=== PATIENT | female | born 1975 | race American Indian/Alaskan Native ===

== ENCOUNTER 2019-01-20 08:05 | Emergency (ER) | payer OTHER ==
[2019-01-20 08:40] VITALS: BP 161/108
[2019-01-20] MEDS ORDERED: TORADOL IM ONE (09:39)
[2019-01-20] MEDS ORDERED: DELTASONE PO ONE (09:39)
[2019-01-20] MEDS ORDERED: FLEXERIL PO ONE (09:39)
--- NOTE | 2019-01-20 09:50 | Emergency Department Report ---
ED Neck Pain/Injury HPI - General Chief Complaint: Neck Pain/Injury Stated Complaint: NECK PAIN Time Seen by Provider: 01/20/19 09:31 Mode of arrival: Ambulatory Limitations: No Limitations - History of Present Illness Initial Comments: This is a 43-year-old female presents complaining lateral right and left neck pain that started Friday morning. Patient's tissue woke up and cervix which is in the pain. Patient states over time its gotten a bit stiff and hurts when she moves her muscles of her neck from side to side. She denies any trauma or recent injuries or falls. She denies fever/nausea vomiting/recent travel or any other problems. MD Complaint: neck pain -: Sudden Place: home Radiation: right lateral, left lateral Severity: moderate Severity scale (0 -10): 7 Quality: aching Consistency: constant Improves With: immobilization Worsens With: movement of neck Context: unknown Associated Symptoms: none. denies: headache, fever, numbness, weakness, vertigo, difficulty walking, nausea, vomiting Treatments Prior to Arrival: none - Related Data Previous Rx's Medication Instructions Recorded Last Taken Type Acetaminophen/Codeine [Tylenol 1 tab PO Q6H PRN #12 tab 12/10/18 Unknown Rx /Codeine # 3 tab] Clindamycin [Clindamycin CAP] 300 mg PO Q8H 10 Days #30 cap 12/10/18 Unknown Rx Amlodipine Besylate [Norvasc] 5 mg PO DAILY #40 tablet 01/20/19 Unknown Rx Cyclobenzaprine [Flexeril 10 MG 10 mg PO QHS #20 tablet 01/20/19 Unknown Rx TAB] Ibuprofen [Motrin 800 MG tab] 800 mg PO Q8HR PRN #30 tablet 01/20/19 Unknown Rx Allergies Allergy/AdvReac Type Severity Reaction Status Date / Time No Known Allergies Allergy Unverified 12/10/18 18:28 ED Review of Systems ROS: Stated complaint: NECK PAIN Other details as noted in HPI Comment: All other systems reviewed and negative ED Past Medical Hx - Past Medical History Previous Medical History?: Yes Hx Hypertension: Yes - Surgical History Past Surgical History?: Yes Additional Surgical History: Right foot surgery, C SECTION - Social History Smoking Status: Current Every Day Smoker Substance Use Type: Alcohol - Medications Home Medications: Home Medications Medication Instructions Recorded Confirmed Last Taken Type Acetaminophen/Codeine [Tylenol 1 tab PO Q6H PRN #12 tab 12/10/18 Unknown Rx /Codeine # 3 tab] Clindamycin [Clindamycin CAP] 300 mg PO Q8H 10 Days #30 cap 12/10/18 Unknown Rx Amlodipine Besylate [Norvasc] 5 mg PO DAILY #40 tablet 01/20/19 Unknown Rx Cyclobenzaprine [Flexeril 10 MG 10 mg PO QHS #20 tablet 01/20/19 Unknown Rx TAB] Ibuprofen [Motrin 800 MG tab] 800 mg PO Q8HR PRN #30 tablet 01/20/19 Unknown Rx ED Physical Exam - General Limitations: No Limitations General appearance: alert, in no apparent distress - Head Head exam: Present: atraumatic, normocephalic - Eye Eye exam: Present: normal appearance - ENT ENT exam: Present: mucous membranes moist - Neck Neck exam: Present: normal inspection, tenderness (mildly tender to the right and left trapezius muscles of the neck), full ROM (limited with pain), other (no nucal rigidity or spinal tenderness). Absent: meningismus, lymphadenopathy, thyromegaly - Respiratory Respiratory exam: Present: normal lung sounds bilaterally. Absent: respiratory distress, wheezes - Cardiovascular Cardiovascular Exam: Present: regular rate, normal rhythm. Absent: systolic murmur, diastolic murmur, rubs, gallop - GI/Abdominal GI/Abdominal exam: Present: soft, normal bowel sounds - Extremities Exam Extremities exam: Present: normal inspection - Back Exam Back exam: Present: normal inspection - Neurological Exam Neurological exam: Present: alert, oriented X3 - Psychiatric Psychiatric exam: Present: normal affect, normal mood - Skin Skin exam: Present: warm, dry, intact, normal color. Absent: rash ED Course Vital Signs 01/20/19 08:37 Temperature 97.8 F Pulse Rate 85 Respiratory 18 Rate Blood Pressure 161/108 O2 Sat by Pulse 100 Oximetry ED Medical Decision Making - Medical Decision Making 43-year-old female presents to ED with cervical muscle strain ED course: Patient received Toradol,pred and Flexeril in ED. Vital signs are normal patient is in no acute distress Discussed with patient follow-up with primary care physician. Discussed the patient and take medications as prescribed. Patient has no neurological deficit. Patient is alert and oriented 3 and understands all instructions given. Discussed drowsiness effect of Flexeril makes her drowsy and not to operate machinery while taking flexeril Critical care attestation.: If time is entered above; I have spent that time in minutes in the direct care of this critically ill patient, excluding procedure time. ED Disposition Clinical Impression: Cervical muscle strain Disposition: - TO HOME OR SELFCARE Is pt being admited?: No Does the pt Need Aspirin: No Condition: Stable Instructions: Muscle Strain (ED), Muscle Spasm (ED) Additional Instructions: Make sure to follow up with the primary care physician as discussed. Take all your medications as you've been prescribed. If you have any worsening symptoms or develop new symptoms please return to ED immediately. Prescriptions: Cyclobenzaprine [Flexeril 10 MG TAB] 10 mg PO QHS #20 tablet Ibuprofen [Motrin 800 MG tab] 800 mg PO Q8HR PRN #30 tablet PRN Reason: mild pain Amlodipine Besylate [Norvasc] 5 mg PO DAILY #40 tablet Referrals: CARA MOYA MD [Primary Care Provider] - 3-5 Days Forms: Accompanied Note, Work/School Release Form(ED) Time of Disposition: 09:52
== END 2019-01-20 10:12 | disposition home or self-care (01) ==
LOC: ED 08:05
DX: S16.1XXA Strain of muscle, fascia and tendon at neck level, initial encounter (principal); I10 Essential (primary) hypertension; F17.200 Nicotine dependence, unspecified, uncomplicated; X58.XXXA Exposure to other specified factors, initial encounter; Y93.89 Activity, other specified; Y92.89 Other specified places as the place of occurrence of the external cause; Y99.8 Other external cause status
CPT/HCPCS: 96372; 99282; J1885; J7512

== ENCOUNTER 2019-01-23 14:41 | Emergency (ER) | payer OTHER ==
--- NOTE | 2019-01-23 15:44 | Emergency Department Report ---
Chief Complaint: Neck Pain/Injury Stated Complaint: NECK PAIN Time Seen by Provider: 01/23/19 15:41 - HPI History of Present Illness: PCP NONE RX NORVASC PMH HTN PSH CSEC R FOOT LMP 2 CO NECK PAIN HERE 3 DAYS AGO MEDS NOT WORKING DID NOT FOLLOW UP AMBULATORY CIG ETOH MSE COMPLETED MSE screening note: Focused history and physical exam performed. Due to findings the following was ordered: ED Disposition for MSE Condition: Stable
--- NOTE | 2019-01-23 16:29 | XRay Report ---
PROCEDURE: XR SPINE CERVICAL 2-3V TECHNIQUE: Cervical spine, 3 views HISTORY: PAIN IN NECK COMPARISONS: None FINDINGS: The vertebral body heights and alignment are maintained. Disc spaces are preserved. Prevertebral soft tissues are within normal limits in thickness. Odontoid process is intact. IMPRESSION: No acute abnormality is identified. This document is electronically signed by Maryse Blue MD., January 23 2019 04:26:33 PM ET
[2019-01-23] MEDS ORDERED: TORADOL IM ONE (17:22)
--- NOTE | 2019-01-23 17:23 | Emergency Department Report ---
ED Neck Pain/Injury HPI - General Chief Complaint: Neck Pain/Injury Stated Complaint: NECK PAIN Time Seen by Provider: 01/23/19 15:41 Mode of arrival: Ambulatory Limitations: No Limitations - History of Present Illness Initial Comments: Pt is a 43 yo female who presents to the ED with c/o left and right sided neck pain that began a week ago. She states she woke up with the pain. The patient denies any injury, fall, or trauma. Pt was evaluated in the ED a couple of days ago and given flexeril and antiinflammatory. Pt states that the flexeril is not helping. Pt denies any LEONARD, fever, numbness, tingling, or weakness. The patient has a hx of HTN and states she took her medication this morning. MD Complaint: neck pain Onset/Timin -: week(s) Radiation: right lateral, left lateral Severity: moderate Severity scale (0 -10): 5 Quality: aching Associated Symptoms: none Treatments Prior to Arrival: Ibuprofen, other (flexeril) - Related Data Previous Rx's Medication Instructions Recorded Last Taken Type Amlodipine Besylate [Norvasc] 5 mg PO DAILY #40 tablet 01/20/19 Unknown Rx Cyclobenzaprine [Flexeril 10 MG 10 mg PO QHS #20 tablet 01/20/19 Unknown Rx TAB] Ibuprofen [Motrin 800 MG tab] 800 mg PO Q8HR PRN #30 tablet 01/20/19 Unknown Rx Allergies Allergy/AdvReac Type Severity Reaction Status Date / Time No Known Allergies Allergy Unverified 12/10/18 18:28 ED Review of Systems ROS: Stated complaint: NECK PAIN Other details as noted in HPI Comment: All other systems reviewed and negative ED Past Medical Hx - Past Medical History Previous Medical History?: Yes Hx Hypertension: Yes - Surgical History Past Surgical History?: Yes Additional Surgical History: Right foot surgery, C SECTION - Social History Smoking Status: Current Some Day Smoker Substance Use Type: Alcohol - Medications Home Medications: Home Medications Medication Instructions Recorded Confirmed Last Taken Type Amlodipine Besylate [Norvasc] 5 mg PO DAILY #40 tablet 01/20/19 Unknown Rx Cyclobenzaprine [Flexeril 10 MG 10 mg PO QHS #20 tablet 01/20/19 Unknown Rx TAB] Ibuprofen [Motrin 800 MG tab] 800 mg PO Q8HR PRN #30 tablet 01/20/19 Unknown Rx ED Physical Exam - General Limitations: No Limitations General appearance: alert, other (appears to be in discomfort from her neck pain) - Head Head exam: Present: atraumatic, normocephalic - Eye Eye exam: Present: normal appearance - ENT ENT exam: Present: mucous membranes moist - Neck Neck exam: Present: normal inspection, tenderness (mild paraspinal C-spine tenderness bilaterally, pt refuses to move neck secondary to pain ) - Respiratory Respiratory exam: Present: normal lung sounds bilaterally. Absent: respiratory distress, wheezes, rales, rhonchi, stridor - Cardiovascular Cardiovascular Exam: Present: regular rate, normal rhythm, normal heart sounds - Neurological Exam Neurological exam: Present: alert, oriented X3, normal gait. Absent: motor sensory deficit - Skin Skin exam: Present: warm, dry, intact ED Course Vital Signs 01/23/19 01/23/19 15:42 17:35 Temperature 98.4 F Pulse Rate 99 H 88 Respiratory 20 18 Rate Blood Pressure 153/102 Blood Pressure 156/101 [Right] O2 Sat by Pulse 98 Oximetry ED Medical Decision Making - Radiology Data XR c-spine: no acute process - Medical Decision Making pt presents with bilateral paraspinal C-spine TTP. No neuro sx, no injury, no trauma, no fall. Never had pain prior, XR c-spine is normal. Pt is able to move the neck after given one dose of toradol, has full active ROM. Will give pt ortho referral. Advised to follow up with her PCP in the next 2-3 days. Pt with elevated BP, advised to discuss with her PCP for further management and medication adjustments. Critical care attestation.: If time is entered above; I have spent that time in minutes in the direct care of this critically ill patient, excluding procedure time. ED Disposition Clinical Impression: Cervical muscle strain Qualifiers: Encounter type: subsequent encounter Qualified Code(s): S16.1XXD - Strain of muscle, fascia and tendon at neck level, subsequent encounter Disposition: TO HOME OR SELFCARE Is pt being admited?: No Does the pt Need Aspirin: No Condition: Stable Instructions: Muscle Strain (ED) Additional Instructions: Follow up with ortho Dr. Kelley. Follow up with primary care doctor in the next two to three days. Need to discuss with primary care your elevation in your blood pressure will need to have medications adjusted by your PCP. Referrals: CARA MOYA MD [Primary Care Provider] - 3-5 Days HUGO KELLEY MD [Staff Physician] - 3-5 Days Time of Disposition: 18:39 Print Language: MACEDONIAN
[2019-01-23 17:35] VITALS: BP 156/101
[2019-01-23] MEDS ORDERED: PERCOCET 5/325 PO ONE (17:57)
[2019-01-23] MEDS ORDERED: SKELAXIN PO ONE (17:58)
[2019-01-23] MEDS ORDERED: LIORESAL PO SCH (20:00)
== END 2019-01-23 18:56 | disposition home or self-care (01) ==
LOC: ED 14:41
DX: S16.1XXA Strain of muscle, fascia and tendon at neck level, initial encounter (principal); I10 Essential (primary) hypertension; F17.200 Nicotine dependence, unspecified, uncomplicated; X58.XXXA Exposure to other specified factors, initial encounter; Y93.89 Activity, other specified; Y92.89 Other specified places as the place of occurrence of the external cause; Y99.8 Other external cause status
CPT/HCPCS: 72040; 96372; 99283; J1885